=== PATIENT | female | born 1995 | race Caucasian/White ===

== ENCOUNTER 2017-10-09 15:12 | Emergency (ER) | payer BC, OTHER ==
[~2017-10-09] VITALS: Ht 165.1 cm; Wt 69.2 kg
[~2017-10-09 15:12] MED LIST: CYPR4TAB31 PO; GLYC1TAB19 PO; LEVOTAB6 PO; MODA100T17 PO; ZOLP10TA PO
--- NOTE | 2017-10-09 15:27 | EMERGENCY ROOM VISIT NOTE ---
History Report prepared by Bette: Cedrick Walker Under the Supervision of: Dr. Benjy Hercules M.D. First contact with patient: 15:17 Stated Complaint: SYNCOPE History of Present Illness The patient is a 22 year old white female with a past medical history of POTS and fibromyalgia who presents to the ED via EMS with a cc of a syncopal episode beginning prior to arrival this afternoon. Positive headache both in front and back, back pain, numbness in lower extremities. Negative blood, incontinence of bowel or bladder. She says that one of her friends witnessed the episode and fall but the friend is not here right now. Per EMS, the patient has gone 4 months without a syncopal episode. The patient fell onto a ground level floor but the floor was hard. She states that her worst pain is the posterior headache , which is unusual for her after any of her episodes, and the only abnormal symptoms she has currently. The patient was noted to be able to wiggle her toes. She does not take any seizure medications. Source of History: patient, EMS Onset: PEDICURIST this afternoon Position: other (global - syncopal episode) Symptom Intensity: with fall Quality: other (history of seizures) Associated Symptoms: + headache, + back pain, + numbness (Lower extremities) , No urinary symptoms Note: Negative blood, bowel incontinence. Review of Systems See HPI for pertinent positives and negatives. A total of ten systems were reviewed and were otherwise negative. Past Medical & Surgical Medical Problems: (1) Chronic back pain (2) POTS (postural orthostatic tachycardia syndrome) Family History Patient reports no known family medical history. Social History Smoking Status: Never Smoker Marital Status: single Housing Status: lives alone Occupation Status: [employer] student Current/Historical Medications Scheduled Eszopiclone (Lunesta), 3 MG PO HS Levonorgestrel-Ethinyl Estradi (Seasonique), 1 TAB PO DAILY Miscellaneous Medications Desmopressin Acetate (Desmopressin Acetate) Allergies Coded Allergies: Hops Oil (Verified Allergy, Unknown, HIVES, 05/18/15) Verapamil (Verified Allergy, Unknown, PSYCHCOTIC BEHAVIORS, 05/18/15) Physical Exam Vital Signs Date Time Temp Pulse Resp B/P (MAP) Pulse Ox O2 Delivery O2 Flow Rate FiO2 10/09/17 19:48 87 20 101/65 97 10/09/17 19:00 95 18 96/61 96 Room Air 1/18/18 17:32 66 10/09/17 16:58 100 Room Air 10/09/17 16:40 76 20 110/68 100 Room Air 10/09/17 15:31 36.7 Physical Exam GENERAL: Awake, alert, well-appearing, NAD HENT: Normocephalic, atraumatic. EYES: Normal conjunctiva. Sclera non-icteric. NECK: Supple. No nuchal rigidity. FROM. RESPIRATORY: CTAB, no rhonchi, wheezing, crackles CARDIAC: RRR, no MRG ABDOMEN: Soft, NTND, BS+ MSK: No chest wall TTP, no LE edema. Mild upper thoracic T spine TTP w/o ecchymosis or stepoffs NEURO: GCS 15, bilateral lower extremity sensory decreased sensation, can feel pressure, 2/5 b/l LE strength at hips/knees, can move toes. SKIN: No rash or jaundice noted. Medical Decision & Procedures ER Provider Diagnostic Interpretation: Radiology results as stated below per my review and radiologist interpretation: HEAD CT NONCONTRAST CT DOSE: 638.56 mGycm HISTORY: EVALUATE ALTERED MENTAL STATUS/WEAKNESS TECHNIQUE: Multiaxial CT images of the head were performed without the use of intravenous contrast. Automated exposure control was utilized for this study. A dose lowering technique was utilized adhering to the principles of ALARA. Comparison: Head CT 05/18/2015. Findings: The paranasal sinuses and mastoid air cells are clear. The calvarium and skull base are intact. The ventricles and sulci are within normal limits. There is no mass, hematoma, midline shift, or acute infarct. Impression: No acute intracranial abnormality. Electronically signed by: Bladimir Sierra M.D. 10/09/2017 4:23 PM Dictated Date/Time: 10/09/2017 4:[address] SCAN OF THE CERVICAL SPINE CLINICAL HISTORY: Syncope. COMPARISON STUDY: CT scan of the cervical spine dated 05/18/2015. TECHNIQUE: CT scan of the cervical spine is performed from the skull base to the upper thoracic spine. Images are reviewed in the axial, sagittal, and coronal planes. IV contrast was not administered for this examination. A dose lowering technique was utilized adhering to the principles of ALARA. CT DOSE: 401.03 mGycm FINDINGS: Skeletal structures: The skeletal structures are well mineralized. There is no evidence of fracture or subluxation involving the cervical spine. Vertebral body height and alignment are maintained. There is straightening of the cervical lordosis. The odontoid process and lateral masses are intact. The atlantoaxial articulation is preserved. The spinous processes appear intact. Intervertebral discs: The disc spaces are well maintained. Central canal: Widely patent. Soft tissues: The prevertebral and paraspinous soft tissues are within normal limits. Calvarium: The visualized calvarium at the skull base appears intact. Brain parenchyma: Partially visualized brain parenchyma the skull base is within normal limits. Sinuses and mastoids: The visualized paranasal sinuses are clear. The mastoid air cells are well pneumatized. Lung apices: Clear as visualized. IMPRESSION: There is no evidence of fracture or subluxation involving the cervical spine. Electronically signed by: Cordell Newman M.D. 10/09/2017 4:24 PM Dictated Date/Time: 10/09/2017 4:22 PM SINGLE VIEW CHEST CLINICAL HISTORY: Weakness. Change in mental status. FINDINGS: An AP, portable, upright chest radiograph is obtained. No prior studies are available for comparison at the time of dictation. The examination is degraded by portable technique and patient rotation. The cardiomediastinal silhouette is unremarkable. The lungs and pleural spaces are clear. No pneumothorax is seen. The bony thorax is grossly intact. IMPRESSION: No active disease in the chest. Electronically signed by: Cordell Newman M.D. 10/09/2017 5:14 PM Dictated Date/Time: 10/09/2017 5:14 PM Laboratory Results 10/09/17 16:26 Red Blood Count 4.70, Mean Corpuscular Volume 88.5, Mean Corpuscular Hemoglobin 30.6, Mean Corpuscular Hemoglobin Concent 34.6, Mean Platelet Volume 10.2 10/09/17 16:26 Test 10/09/17 16:26 White Blood Count 12.86 K/uL (4.8-10.8) Red Blood Count 4.70 M/uL (4.2-5.4) Hemoglobin 14.4 g/dL (12.0-16.0) Hematocrit 41.6 % (37-47) Mean Corpuscular Volume 88.5 fL (80-100) Mean Corpuscular Hemoglobin 30.6 pg (25-34) Mean Corpuscular Hemoglobin Concent 34.6 g/dl (32-36) Platelet Count 251 K/uL (130-400) Mean Platelet Volume 10.2 fL (7.4-10.4) RDW Standard Deviation 44.0 fL (36.4-46.3) RDW Coefficient of Variation 13.4 % (11.5-14.5) Neutrophils % (Manual) 48.6 % Lymphocytes % (Manual) 23.9 % Variant Lymphocytes % (manual) 19.5 % Monocytes % (Manual) 6.2 % Eosinophils % (Manual) 1.8 % Neutrophils # (Manual) 6.25 K/uL (1.4-6.5) Total Absolute Neutrophils 6.25 K/uL (1.4-6.5) Lymphocytes # (Manual) 3.07 K/uL (1.2-3.4) Absolute Variant Lymphocytes 2.51 K/uL Total Absolute Lymphocytes 5.58 K/uL (1.2-3.4) Monocytes # (Manual) 0.80 K/uL (0.11-0.59) Eosinophils # (Manual) 0.23 K/uL (0-0.5) Anion Gap 9.0 mmol/L (3-11) Est Creatinine Clear Calc Drug Dose 103.3 ml/min Estimated GFR () 116.1 Estimated GFR (Non- 100.2 BUN/Creatinine Ratio 12.4 (10-20) Calcium Level 9.0 mg/dl (8.5-10.1) Phosphorus Level 2.6 mg/dl (2.5-4.9) Magnesium Level 2.0 mg/dl (1.8-2.4) Total Bilirubin 0.4 mg/dl (0.2-1) Direct Bilirubin < 0.1 mg/dl (0-0.2) Aspartate Amino Transf (AST/SGOT) 16 U/L (15-37) Alanine Aminotransferase (ALT/SGPT) 21 U/L (12-78) Alkaline Phosphatase 48 U/L (45-117) Total Protein 7.1 gm/dl (6.4-8.2) Albumin 3.7 gm/dl (3.4-5.0) Thyroid Stimulating Hormone (TSH) 1.450 uIu/ml (0.300-4.500) Laboratory results reviewed by me Medications Administered Medications (Trade) Dose Ordered Sig/Sneha Route Start Time Stop Time Status Last Admin Dose Admin Sodium Chloride 1,000 ml @ 999 mls/hr Q1H1M STAT IV 10/09/17 15:30 10/09/17 16:30 DC 10/09/17 17:20 999 MLS/HR Metoclopramide HCl (Reglan Inj) 10 mg NOW STAT IV. 10/09/17 17:52 10/09/17 17:53 DC 10/09/17 18:23 10 MG Diphenhydramine HCl (Benadryl Inj) 25 mg NOW STAT IV 10/09/17 17:52 10/09/17 17:53 DC 10/09/17 18:22 25 MG Acetaminophen (Tylenol Tab) 1,000 mg NOW STAT PO 10/09/17 17:52 10/09/17 17:53 DC 10/09/17 18:22 1,000 MG ECG Indication: syncope Rate (beats per minute): 66 Rhythm: normal sinus Findings: other (normal intervals, normal axis, no STS changes or TWI) Change: Patient's electrocardiogram interpreted by me. ED Course 1520: The patient was evaluated in room B4A. A complete history and physical exam was performed. 1744: I reevaluated the patient and she has a mild headache but is moving okay. 1908: I reevaluated the patient and she is resting comfortably. Discussed results and discharge instructions: she verbalized understanding and agreement. The patient is ready for discharge. Medical Decision The patient is a 22 year old white female with a past medical history of seizures and syncopal episodes who presents to the ED via EMS with a cc of a syncopal episode beginning prior to arrival this afternoon. Positive headache both in front and back, back pain, numbness in lower extremities. Negative blood , incontinence of bowel or bladder. Differential diagnosis: Etiologies such as infection, hypoglycemia, electrolyte abnormalities, cardiac sources, intracerebral event, trauma, toxicologic, neurologic, as well as others were entertained. Patient was seen and evaluated at the bedside. Patient purportedly had a syncopal episode. 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 Per EMS with a ground-level fall no seizure-like activity. They did check a blood sugar which was normal. Patient was complaining of some lower extremity weakness and some mild headache and back pain. On exam the patient is very well-appearing. The patient is in a c-collar and backboarded. Patient was taken off the backboard using C-spine precautions and the patient did have some mild thoracic tenderness to palpation but without any step-offs or ecchymosis. Patient initially had a somewhat concerning neurologic exam as the patient was not moving her lower extremities were well. However, the patient did state that when she does have these episodes that she does have loss of strength in this is a chronic issue. Patient did have blood work completed, EKG, CT of the head and C-spine. The patient remained in the c- collar and was in the supine position during her workup. Patient's blood work was fairly unremarkable. Patient CTs of the head and neck were negative. Chest x-ray was also clear. EKG didn't show any overt arrhythmia or ischemia. The patient was feeling mildly improved he complains mild headache. The patient was moving her extremities with much improvement. Patient had improvement in her sensation as well. Given this the patient had her C-spine cleared and the patient's c-collar was removed. The patient was still complaining some mild headache. Patient was given medication as well as some benny yvonne. Patient's headache improved and at this point had resolved. The patient was able to ambulate without issue. I do believe that given her chronicity of this weakness is likely related to her syncope as she states this happened in the past. Her symptoms were completely resolved. Patient was told that she should follow-up with her specialist n- she still follows at [facility] in [place] - as scheduled. She was also instructed to return if she has any recurrence of any numbness or weakness. Patient was deemed suitable for outpatient follow-up and treatment at this time.Patient was given strict follow- up, discharge, and return precautions. All questions were answered. Patient was deemed suitable for outpatient follow-up at this time. Patient agreed with the plan of care and was safely discharged home. The chart was completed utilizing [employer] voice recognition software. Grammatical errors, random word insertions, pronoun errors, and incomplete sentences are an occasional consequence of this system due to software limitations, ambient noise, and hardware issues. Any formal questions or concerns about the content, text, or information contained within the body of this dictation should be directly addressed to the physician for clarification. Medication Reconcilliation Current Medication List: was personally reviewed by me Blood Pressure Screening Patient's blood pressure: Normal blood pressure Impression Primary Impression: Syncope Scribe Attestation The scribe's documentation has been prepared under my direction and personally reviewed by me in its entirety. I confirm that the note above accurately reflects all work, treatment, procedures, and medical decision making performed by me. Departure Information Dispostion Home / Self-Care Referrals No Doctor, Assigned (PCP) Patient Instructions Fainting (Syncope) - [facility], [facility], Syncope Additional Instructions Please return to the emergency department if you have worsening or recurrent symptoms not amenable to at-home treatment. Please call for a follow-up appointment with her primary care physician. Please take your medications as prescribed. If you have other concerns and/or complaints please feel free to also call your primary care physician's office or return the ED for further evaluation, management, and treatment. Please follow-up with your primary care physician. Return if you have any worsening symptoms. You may take 600 mg Ibuprofen every 6 hours as needed for pain with food for no more than 2 consecutive days. You may take tylenol 1000 mg every 6 hours as needed for pain. You may take motrin and tylenol separately or at the same time. Take your medications as prescribed. You have been examined and treated today on an emergency basis only. This is not a substitute for, or an effort to provide, complete comprehensive medical care. It is impossible to recognize and treat all injuries or illnesses in a single emergency department visit. It is therefore important that you follow up closely with [facility], your PCP, and/or your specialist(s). Call as soon as possible for an appointment. Thank you for your time and consideration. I look forward to speaking with you again soon. Please don't hesitate to call us if you have any questions. Problem Qualifiers Primary Impression: Syncope Syncope type: unspecified Qualified Codes: R55 - Syncope and collapse
[2017-10-09] MEDS ORDERED: SODIUM CHLORIDE 0.9% 1000ML 1,000 ML IV STA (15:30)
[2017-10-09 15:31] VITALS: TEMP 36.7; Ht 165.1 cm; Wt 69.2 kg
--- NOTE | 2017-10-09 16:25 | DIAGNOSTIC IMAGING REPORT ---
HEAD CT NONCONTRAST CT DOSE: 638.56 mGycm HISTORY: EVALUATE ALTERED MENTAL STATUS/WEAKNESS TECHNIQUE: Multiaxial CT images of the head were performed without the use of intravenous contrast. Automated exposure control was utilized for this study. A dose lowering technique was utilized adhering to the principles of ALARA. Comparison: Head CT 05/18/2015. Findings: The paranasal sinuses and mastoid air cells are clear. The calvarium and skull base are intact. The ventricles and sulci are within normal limits. There is no mass, hematoma, midline shift, or acute infarct. Impression: No acute intracranial abnormality. Electronically signed by: Bladimir Sierra M.D. 10/09/2017 4:23 PM Dictated Date/Time: 10/09/2017 4:18 PM
--- NOTE | 2017-10-09 16:26 | DIAGNOSTIC IMAGING REPORT ---
CT SCAN OF THE CERVICAL SPINE CLINICAL HISTORY: Syncope. COMPARISON STUDY: CT scan of the cervical spine dated 05/18/2015. TECHNIQUE: CT scan of the cervical spine is performed from the skull base to the upper thoracic spine. Images are reviewed in the axial, sagittal, and coronal planes. IV contrast was not administered for this examination. A dose lowering technique was utilized adhering to the principles of ALARA. CT DOSE: 401.03 mGycm FINDINGS: Skeletal structures: The skeletal structures are well mineralized. There is no evidence of fracture or subluxation involving the cervical spine. Vertebral body height and alignment are maintained. There is straightening of the cervical lordosis. The odontoid process and lateral masses are intact. The atlantoaxial articulation is preserved. The spinous processes appear intact. Intervertebral discs: The disc spaces are well maintained. Central canal: Widely patent. Soft tissues: The prevertebral and paraspinous soft tissues are within normal limits. Calvarium: The visualized calvarium at the skull base appears intact. Brain parenchyma: Partially visualized brain parenchyma the skull base is within normal limits. Sinuses and mastoids: The visualized paranasal sinuses are clear. The mastoid air cells are well pneumatized. Lung apices: Clear as visualized. IMPRESSION: There is no evidence of fracture or subluxation involving the cervical spine. Electronically signed by: Cordell Newman M.D. 10/09/2017 4:24 PM Dictated Date/Time: 10/09/2017 4:22 PM
[2017-10-09 16:40] LABS: HEMATOCRIT 41.6 % (37-47); HEMOGLOBIN 14.4 g/dL (12.0-16.0); MEAN CELL VOLUME 88.5 fL (80-100); MEAN CORPUSCULAR HEMOGLOBIN 30.6 pg (25-34); MEAN CORPUSCULAR HGB CONC 34.6 g/dl (32-36); MEAN PLATELET VOLUME 10.2 fL (7.4-10.4); PLATELET COUNT 251 K/uL (130-400); RED CELL DISTRIBUTION WIDTH CV 13.4 % (11.5-14.5); WHITE BLOOD COUNT 12.86 K/uL (4.8-10.8)
[2017-10-09 16:58] VITALS: O2SAT 100
[2017-10-09 16:58] LABS: ALBUMIN 3.7 gm/dl (3.4-5.0); ALT/SGPT 21 U/L (12-78); BLOOD UREA NITROGEN 10 mg/dl (7-18); CARBON DIOXIDE 24 mmol/L (21-32); CREATININE 0.82 mg/dl (0.60-1.20); GLUCOSE 86 mg/dl (70-99); POTASSIUM 3.9 mmol/L (3.5-5.1); SODIUM 141 mmol/L (136-145)
[2017-10-09 17:09] LABS: ALKALINE PHOSPHATASE 48 U/L (45-117); AST/SGOT 16 U/L (15-37); PHOSPHORUS 2.6 mg/dl (2.5-4.9); TOTAL PROTEIN 7.1 gm/dl (6.4-8.2)
--- NOTE | 2017-10-09 17:16 | DIAGNOSTIC IMAGING REPORT ---
SINGLE VIEW CHEST CLINICAL HISTORY: Weakness. Change in mental status. FINDINGS: An AP, portable, upright chest radiograph is obtained. No prior studies are available for comparison at the time of dictation. The examination is degraded by portable technique and patient rotation. The cardiomediastinal silhouette is unremarkable. The lungs and pleural spaces are clear. No pneumothorax is seen. The bony thorax is grossly intact. IMPRESSION: No active disease in the chest. Electronically signed by: Cordell Newman M.D. 10/09/2017 5:14 PM Dictated Date/Time: 10/09/2017 5:14 PM
[2017-10-09] MEDS ORDERED: ESZO1TAB16 PO (17:20)
[2017-10-09] MEDS ORDERED: DESM0.1T8 (17:20)
[2017-10-09] MEDS ORDERED: METOCLOPRAMIDE HCL INJ 5 MG/ML 2 ML VIAL IV. STA (17:52)
[2017-10-09] MEDS ORDERED: DiphenhydrAMINE HCL 50 MG/ML VIAL IV STA (17:52)
[2017-10-09] MEDS ORDERED: ACETAMINOPHEN 500 MG TAB PO STA (17:52)
[2017-10-09 19:48] VITALS: BP 101/65; PULSE 87; O2SAT 97
== END 2017-10-09 19:48 | disposition home or self-care (01) ==
LOC: EDBD 15:12 → C.EDB 15:16
DX: R55 Syncope and collapse (principal); M79.7 Fibromyalgia; G89.29 Other chronic pain; M54.9 Dorsalgia, unspecified; Z79.899 Other long term (current) drug therapy